=== PATIENT | male | born 1985 | race Caucasian/White ===

== ENCOUNTER 2021-05-23 15:34 | Emergency (ER) | payer OTHER ==
[~2021-05-23] VITALS: Ht 182.9 cm; Wt 76.0 kg
[2021-05-23 15:40] VITALS: BP 126/79
[2021-05-23] MEDS ORDERED: OXYC1TAB15 PO (16:08)
[2021-05-23] MEDS ORDERED: PRED50TA PO (16:08)
[2021-05-23] MEDS ORDERED: LIDO700A21 TP (16:08)
[2021-05-23] MEDS ORDERED: IBUP-577 PO (16:08)
--- NOTE | 2021-05-23 16:09 | PHYS DOC ---
Past History Additional Past Medical Histor: tinnea vascularis Past Surgical History: Other Additional Past Surgical Histo: wisdom teeth Alcohol Use: Occasionally Adult General Chief Complaint Chief Complaint: LOWER BACK PAIN OR INJURY HPI HPI Patient is a 35-year-old male presenting to the emergency department for evaluation of left lower lumbar pain that started yesterday after doing some exercises and lifting some objects and he says it felt much worse this morning to the point where he cannot pick anything up and hurts to move his torso or bend and twist in any direction. Patient says the pain radiates to his left upper buttocks region but does not go down his leg and he denies any distal weakness numbness or tingling. He denies any bowel or bladder incontinence or saddle anesthesia he says he has had. Back pain issues for the past 5 years since starting an intensive exercise routine and he has been trying to take it easy but may have overdone it yesterday. Patient is in no acute distress with normal vital signs. Review of Systems Review of Systems Constitutional: Denies fever or chills [] GI: Denies abdominal pain, nausea, vomiting, bloody stools or diarrhea [] : Denies dysuria or hematuria [] Musculoskeletal: + back pain Neurologic: Denies headache, focal weakness or sensory changes [] All other systems were reviewed and found to be within normal limits, except as documented in this note. Current Medications Current Medications Current Medications Medications (Trade) Dose Ordered Sig/[facility] Start Time Stop Time Status Last Admin Dose Admin Dexamethasone (Decadron) 10 mg 1X ONCE 05/23/21 16:15 05/23/21 16:16 Diazepam (Valium) 5 mg 1X ONCE 05/23/21 16:15 05/23/21 16:16 Ketorolac Tromethamine (Toradol Im) 60 mg 1X ONCE 05/23/21 16:15 05/23/21 16:16 Oxycodone/ Acetaminophen (Percocet 5/325) 1 tab 1X ONCE 05/23/21 16:15 05/23/21 16:16 Allergies Allergies Allergies Coded Allergies Type Severity Reaction Last Updated Verified No Known Drug Allergies 05/23/21 No Physical Exam Physical Exam Constitutional: Well developed, well nourished, no acute distress, non-toxic appearance. [] Abdomen: Bowel sounds normal, soft, no tenderness, no masses, no pulsatile masses. [] Back: Left lumbar paraspinal tenderness palpation with no midline lumbar tenderness to palpation. Extremities: No tenderness, no cyanosis, no clubbing, ROM intact, no edema. [] Neurologic: Alert and oriented X 3, normal motor function, normal sensory function, no focal deficits noted. 5-5 strength in bilateral big toe ankle and knee flexion extension. Current Patient Data Vital Signs Vital Signs Date Time Temp Pulse Resp B/P (MAP) Pulse Ox O2 Delivery O2 Flow Rate FiO2 05/23/21 15:40 97.9 70 16 126/79 (95) 98 EKG EKG [] Radiology/Procedures Radiology/Procedures [] Heart Score C/O Chest Pain: No Risk Factors: Risk Factors: DM, Current or recent (<one month) smoker, HTN, HLP, family history of CAD, obesity. Risk Scores: Risk Factors: DM, Current or recent (<one month) smoker, HTN, HLP, family history of CAD, obesity. Course & Med Decision Making Course & Med Decision Making Patient has symptoms consistent with a lumbar strain with no red flag signs or symptoms necessitating emergent MRI. At home I do not see any need for CT or x- ray at this time given his pain is all paraspinal with no midline pain. Patient is agreeable I will treat his symptoms supportively. I told him to follow-up primary care provider as an outpatient within the next 2 to 3 days for recheck and come back to emergency department sooner. I told patient to come back with worsening pain neurologic changes including incontinence or weakness or other concerns. Patient aware and agreeable with plan and verbalized understanding the above instructions. Dragon Disclaimer Dragon Disclaimer This electronic medical record was generated, in whole or in part, using a voice recognition dictation system. Departure Departure: Impression: Primary Impression: Acute lumbar myofascial strain Disposition: HOME / SELF CARE / HOMELESS Condition: STABLE Referrals: TATY TONEY (PCP) Patient Instructions: Lumbosacral Strain Scripts Prednisone (PREDNISONE) 50 Mg Tablet 1 TAB PO DAILY, #3 TAB Start 05/25 Prov: KENIA BAZZI DO 05/23/21 Ibuprofen (Ibu) 800 Mg Tablet 1 TAB PO Q8HRS for 7 Days, #21 TAB 0 Refills Prov: KENIA BAZZI DO 05/23/21 Lidocaine (Lidocaine PATCH ) 1 Each Adh..patch 1 EACH TP DAILY for FOR LOCAL PAIN for 7 Days, #7 PATCH REMOVE AFTER 12 HOURS Prov: KENIA BAZZI DO 05/23/21 Oxycodone Hcl/Acetaminophen (PERCOCET 5-325 MG TABLET ) 1 Each Tablet 1 TAB PO PRN QID PRN for PAIN MDD 4 Tablet(s) for 5 Days, #20 TAB 0 Refills Prov: KENIA BAZZI DO 05/23/21 Problem Qualifiers Primary Impression: Acute lumbar myofascial strain Encounter type: initial encounter Qualified Codes: S39.012A - Strain of muscle, fascia and tendon of lower back, initial encounter KENIA BAZZI DO May 23, 2021 16:09
[2021-05-23] MEDS ORDERED: KETOROLAC 60 MG/2 ML VIAL. IM ONE (16:15)
[2021-05-23] MEDS ORDERED: diazePAM 5 MG TABLET. PO ONE (16:15)
[2021-05-23] MEDS ORDERED: oxyCODONE/APAP 5/325 1 TAB TABLET PO ONE (16:15)
[2021-05-23] MEDS ORDERED: DEXAMETHASONE 4 MG TABLET PO ONE (16:15)
== END 2021-05-23 16:30 | disposition home or self-care (01) ==
LOC: ER 15:34
DX: S39.012A Strain of muscle, fascia and tendon of lower back, initial encounter (principal); X50.9XXA Other and unspecified overexertion or strenuous movements or postures, initial encounter; Y93.89 Activity, other specified; Y92.89 Other specified places as the place of occurrence of the external cause; Y99.8 Other external cause status
CPT/HCPCS: 96372; 99284; J1885; J8540